=== PATIENT | female | born 2000 | race Caucasian/White ===

== ENCOUNTER 2021-05-11 20:22 | Emergency (ER) | payer OTHER | END 2021-05-11 20:50 | disposition left against medical advice (07) | LOC: ER1 20:22 | DX: R10.9 Unspecified abdominal pain (principal); R11.2 Nausea with vomiting, unspecified; Z88.0 Allergy status to penicillin | CPT/HCPCS: 99283 ==

== ENCOUNTER 2021-09-28 14:25 | Emergency (ER) | payer OTHER ==
[2021-09-28] MEDS ORDERED: MEDROL4 MG PO (16:03)
[2021-09-28] MEDS ORDERED: CYCLOBENZAPRINE10 MG PO (16:03)
[2021-09-28] MEDS ORDERED: BENADRYL25 MG PO (16:04)
== END 2021-09-28 16:50 | disposition home or self-care (01) ==
LOC: ER1 14:25
DX: R21 Rash and other nonspecific skin eruption (principal)
CPT/HCPCS: 96372; 99282; J2930